=== PATIENT | male | born 1995 | race Caucasian/White ===

== ENCOUNTER 2023-08-03 11:19 | Observation (INO) ==
[2023-08-03 12:26] LABS: Hematocrit (blood only) 48.4 % (42.0-52.0); Hemoglobin 17.2 g/dl (14.0-18.0); Mean Corpuscular Hemoglobin 29.8 pg (25.0-34.0); Mean Corpuscular Hgb Conc 35.5 g/dL (32.0-36.0); Mean Corpuscular Volume 83.7 fL (80.0-100.0); Mean Platelet Volume 10.3 fL (9.4-12.4); Platelet Count 255 K/uL (130-400); RDW Coefficient of Variation 12.1 % (11.5-14.5); RDW Standard Deviation 36.8 fL (36.4-46.3); Red Blood Count 5.78 M/uL (4.70-6.10); White Blood Count 15.15 K/ul (4.8-10.8)
[2023-08-03 12:41] LABS: Alanine Aminotransferase 43 U/L (7-52); Albumin Globulin Ratio 1.5 (0.9-2); Alkaline Phosphatase 73 U/L (34-104); Anion Gap 7 (3-11); Aspartate Aminotransferase 24 U/L (13-39); Bilirubin,Total 0.4 mg/dl (0.2-1.0); Blood Urea Nitrogen 11 mg/dl (6-23); Calcium 10.1 mg/dl (8.6-10.3); Carbon Dioxide 28 mmol/L (21-32); Chloride 104 mmol/L (98-107); Creatinine Clr Calc Pharmacy 122.9 ml/min; Est GFR (African American) 118.2 ml/min; Globulin 3.4 gm/dl (2.5-4.0); Glucose 121 mg/dl (70-99(Fasting)); Lipase 11 U/L (11-82); Potassium 4.7 mmol/L (3.5-5.1); Sodium 139 mmol/L (136-145); Total Protein 8.4 gm/dl (6.0-8.3)
[2023-08-03 12:46] LABS: Troponin I High Sensitivity < 2.3 pg/ml (0-20)
--- NOTE | 2023-08-03 12:48 | Emergency Department Note ---
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 The pain is constant, but staying about the same intensity. Laying down flat makes the pain worse. He rates it as a stabbing pain rated as 9/10. Also having nausea and vomiting. Denies any fevers. He tried Tylenol and Zofran without improvement of the symptoms. Denies any urinary symptoms. Has been having normal BMs. Denies chest pain or SOB. The patient denies recent long car or plane rides or recent injury/trauma/surgery. Denies any personal history of blood clots or bleeding disorders. Denies any family history of blood clots or bleeding disorders. Denies any hormonal medication use. Denies any hemoptysis. Denies leg/calf pain or swelling. He has had an appendectomy, but no other abdominal surgeries. The patient drank about 1 bottles worth of water while in the waiting room. He ate spaghetti last night, but no other food today. Nothing else to drink today. REVIEW OF SYSTEMS: See HPI for pertinent positives and pertinent negatives. ALLERGIES: Meperidine, Morphine MEDICATIONS: Amitriptyline PAST MEDICAL HISTORY: Depression, Asthma, appendectomy PHYSICAL EXAM: VITALS: Vitals are noted on the nurse's note and reviewed by myself. GENERAL: Non toxic, no acute distress, non-diaphoretic. SKIN: Capillary refill <2 sec. EYES: PERRLA. EOMI. Conjunctivae without injection, sclerae without icterus. NOSE: Patent without discharge. MOUTH: Mucous membranes moist. Uvula midline. Airway patent. NECK: Supple without nuchal rigidity. HEART: Regular rate and rhythm without murmurs gallops or rubs. LUNGS: Clear to auscultation bilaterally without wheezes, rales or rhonchi. No retractions or accessory muscle use. ABDOMEN: Positive bowel sounds x 4. Normal tympanic percussion. Soft, tender to palpation in the right upper quadrant. Positive Varela sign, but no guarding or rigidity. No masses or organomegaly. No CVA tenderness. No focal RLQ or LLQ tenderness. MUSCULOSKELETAL: No gross musculoskeletal defects. NEURO: Patient was alert and oriented. No focal neurological deficits. DIFFERENTIAL DIAGNOSIS: Differential diagnosis includes hepatitis, pancreatitis, cholecystitis, cholelithiasis, appendicitis, kidney stone, pyelonephritis, UTI, gastritis, gastroenteritis, mesenteric adenitis, obstruction, constipation, hernia, abdominal abscess, perforation, diverticulitis, IBD, ischemic colitis, abdominal aortic aneurysm, testicular torsion, prostatitis, or others. ED COURSE AND MEDICAL DECISION MAKING: EKG: EKG was interpreted by myself as normal sinus rhythm at 71 bpm with no acute ST or T wave changes. MEDICATIONS GIVEN: 1 L normal saline solution bolus. Toradol 10 mg IV and Zofran 4 mg IV. Tylenol 1000 mg IV. Zosyn 4.5 g IV. INTERPRETATION OF LABS: I interpreted the labs with full lab results as below in the lab section of this note. White blood cell count elevated at 15.15. Hemoglobin normal at 17.2. Platelet count normal at 255. Glucose 121, but CMP otherwise without significant abnormalities. Lipase is normal. High- sensitivity troponin normal. Urinalysis with trace ketones, but otherwise normal. INTERPRETATION OF IMAGING: Imaging studies were interpreted by myself and read by radiology as per the imaging section of this note. Chest x-ray was negative for acute cardiopulmonary etiology. CT scan of the abdomen and pelvis with IV contrast showed acute cholecystitis. There is a gas containing gallstone in the cystic duct. CONSULTATIONS: Dr. Fritz of surgery MDM SUMMARY: The patient was seen during a time of extreme volume and extreme acuity. Nursing triage protocols were initiated with IV lock, labs, and/or imaging studies conducted by protocol in the triage area. The patient was initially evaluated in a triage room and then re-examined once they were taken back to an exam room. The patient had been given 1 L normal saline solution bolus as well as IV Toradol, IV Tylenol, and IV Zofran with mild improvement of his symptoms. The patient has allergies to morphine and meperidine and was concerned about a reaction to other stronger pain medications. The patient's white blood cell count is elevated and his CT scan is consistent with acute cholecystitis. Remainder of the workup without concerning abnormalities. The patient was given Zosyn 4.5 g IV. Unfortunately the patient did drink a bottle of water while in the waiting room, but nothing else to eat or drink today. Dr. Fritz of surgery was consulted and evaluated the patient. The patient will be admitted with plan for surgical intervention tomorrow. Please refer to Dr. Fritz's dictation for further details. The patient's care was transferred in stable condition. DIAGNOSIS: Acute cholecystitis Past Med/Surg History Medical History History of methamphetamine abuse Surgical History No pertinent past surgical history Family History Other No pertinent family history in first degree relatives Social History Smoking Status: Current every day smoker Tobacco Type: Cigarettes Second Hand Exposure: No; Do You Dip or Chew Tobacco: No; Tobacco Cessation Education Requested by Patient: No Hx Alcohol Use: No Hx Substance Use: No Preferred Language: Azeri Communication Ability: Effective [employer] Required: No Beliefs That Will Affect Care: None Current Living Situation: Family Other Information That Helps Us Care for You: No Feels Safe at Home: Yes Safety Concerns: Feels Safe At This Time Allergies Allergies Allergy/AdvReac Type Severity Reaction Status Date / Time meperidine Allergy Intermediate hives Verified 08/03/23 14:51 morphine Allergy Intermediate hives Verified 08/03/23 14:51 Home Meds Home Medications Medication Instructions Recorded Confirmed amitriptyline 25 mg tablet 25 mg PO HS 08/03/23 08/03/23 Results & Data (ED) Vital Signs Vital Signs - 24 hr 08/03/23 11:22 Temperature 36.6 C Temperature Source Temporal Artery Scan Pulse Rate 68 Respiratory Rate 18 Blood Pressure 143/96 H Blood Pressure Mean 111 Pulse Oximetry 96 Sepsis Recent Fever Within 48 Hours No Sepsis New/Unexplained Change in Mental Status N/A Sepsis Action Taken by Nursing No Action Required Laboratory Data 08/03/23 12:00 08/03/23 12:00 Lab Results 08/03/23 Range/Units 12:00 WBC 15.15 H (4.8-10.8) K/ul RBC 5.78 (4.70-6.10) M/uL Hgb 17.2 (14.0-18.0) g/dl Hct 48.4 (42.0-52.0) % MCV 83.7 (80.0-100.0) fL MCH 29.8 (25.0-34.0) pg MCHC 35.5 (32.0-36.0) g/dL RDW Std Deviation 36.8 (36.4-46.3) fL RDW Coeff of Emmy 12.1 (11.5-14.5) % Plt Count 255 (130-400) K/uL MPV 10.3 (9.4-12.4) fL Immature Gran % (Auto) 0.6 % Neut % (Auto) 90.1 % Lymph % (Auto) 5.5 % [place] % (Auto) 3.5 % Eos % (Auto) 0.1 % Baso % (Auto) 0.2 % Neut # (Auto) 13.65 H (1.40-6.50) K/uL Lymph # (Auto) 0.84 L (1.20-3.40) K/uL [place] # (Auto) 0.53 (0.11-0.59) K/uL Eos # (Auto) 0.01 (0.00-0.50) K/uL Baso # (Auto) 0.03 (0.00-0.20) K/uL Immature Gran # (Auto) 0.09 (0.01-0.20) K/uL Sodium 139 (136-145) mmol/L Potassium 4.7 (3.5-5.1) mmol/L Chloride 104 (98-107) mmol/L Carbon Dioxide 28 (21-32) mmol/L Anion Gap 7 (3-11) BUN 11 (6-23) mg/dl Creatinine 1.00 (0.6-1.4) mg/dl Est Cr Clr Drug Dosing 122.9 ml/min Est GFR ( Amer) 118.2 ml/min Est GFR (Non-Af Amer) 102.0 ml/min BUN/Creatinine Ratio 11.0 (10-20) Glucose 121 H (70-99(Fasting)) mg/dl Calcium 10.1 (8.6-10.3) mg/dl Total Bilirubin 0.4 (0.2-1.0) mg/dl AST 24 (13-39) U/L ALT 43 (7-52) U/L Alkaline Phosphatase 73 (34-104) U/L Troponin I High Sens < 2.3 (0-20) pg/ml Total Protein 8.4 H (6.0-8.3) gm/dl Albumin 5.0 (3.4-5.0) gm/dl Globulin 3.4 (2.5-4.0) gm/dl Albumin/Globulin Ratio 1.5 (0.9-2) Lipase 11 (11-82) U/L Administered Medications Amitriptyline HCl (Amitriptyline Hcl 25 Mg Tab) 25 mg PO HS [place] Stop: 09/02/23 20:59 Last Admin: 08/03/23 20:01 Dose: 25 mg Documented By: GI Hydromorphone HCl (Hydromorphone Inj 0.5 Mg/0.5 Ml Syr) 0.5 mg IV Q3H PRN PRN Reason: Moderate Pain (Scale 4, 5, 6) Stop: 08/17/23 16:13 Last Admin: 08/03/23 19:59 Dose: 0.5 mg Documented By: GI Acetaminophen (Ofirmev) 1,000 mg in 100 mls @ 400 mls/hr IV Q8H PRN PRN Reason: Mild Pain (Scale 1, 2, 3) Stop: 08/06/23 15:32 Last Infusion: 08/03/23 21:21 Dose: Infused Documented By: Admin: 08/03/23 20:57 Dose: 400 mls/hr Documented By: GI Ampicillin Sodium/Sulbactam Sodium 1,500 mg/ Sodium Chloride 100 mls @ 200 mls/hr IV Q6H [facility]; Protocol Stop: 08/13/23 15:59 Last Infusion: 08/03/23 21:38 Dose: Infused Documented By: Admin: 08/03/23 20:51 Dose: 200 mls/hr Documented By: Infusion: 08/03/23 18:14 Dose: Infused Documented By: Admin: 08/03/23 17:36 Dose: 200 mls/hr Documented By: BRITT Sodium Chloride (Nss) 1,000 mls @ 100 mls/hr IV .Q10H [place] Stop: 09/02/23 15:32 Last Admin: 08/03/23 15:39 Dose: 100 mls/hr Documented By: BRITT Nicotine (Nicotine 14 Mg/24 Hr Patch) 14 mg TD QAM [facility] Stop: 09/02/23 20:09 Last Admin: 08/03/23 20:50 Dose: 14 mg Documented By: GI Discontinued Medications Sodium Chloride (Nss) 1,000 mls @ 999 mls/hr IV .Q1H1M ONE Stop: 08/03/23 14:04 Last Infusion: 08/03/23 14:38 Dose: Infused Documented By: Admin: 08/03/23 13:30 Dose: 999 mls/hr Documented By: KAREN Acetaminophen (Ofirmev) 1,000 mg in 100 mls @ 400 mls/hr IV NOW STA Stop: 08/03/23 13:58 Last Infusion: 08/03/23 14:38 Dose: Infused Documented By: Admin: 08/03/23 13:51 Dose: 400 mls/hr Documented By: TERESA Piperacillin Sod/Tazobactam Sod (Zosyn) 4.5 gm in 100 mls @ 200 mls/hr IV NOW ONE Stop: 08/03/23 14:13 Last Infusion: 08/03/23 14:38 Dose: Infused Documented By: Admin: 08/03/23 13:51 Dose: 200 mls/hr Documented By: TERESA Ioversol (Optiray 320 500ml) 94 ml IV ONCE ONE Stop: 08/03/23 13:19 Last Admin: 08/03/23 13:18 Dose: 94 ml Documented By: RAUL Ketorolac Tromethamine (Ketorolac Tromethamine 15 Mg/Ml Vial) 10 mg IV NOW ONE Stop: 08/03/23 13:05 Last Admin: 08/03/23 13:30 Dose: 10 mg Documented By: KAREN Ondansetron HCl (Ondansetron Inj 2 Mg/Ml 2 Ml Vial) 4 mg IV NOW STA Stop: 08/03/23 13:05 Last Admin: 08/03/23 13:30 Dose: 4 mg Documented By: KAREN Imaging Data Radiologist's Impression: Abdomen/Pelvis CT 08/03/23 13:04 CT SCAN OF THE ABDOMEN AND PELVIS WITH IV CONTRAST CLINICAL HISTORY: Upper abdominal pain. Leukocytosis. COMPARISON STUDY: Abdominal CT dated 07/30/2022. TECHNIQUE: Following the IV administration of 94 cc of Optiray 320, CT scan of the abdomen and pelvis is performed from the lung bases to the proximal femora. Images are reviewed in the axial, sagittal, and coronal planes. IV contrast was administered without complication. A dose lowering technique was utilized adhering to the principles of ALARA. CT DOSE: 1103.42 mGy.cm FINDINGS: Lung bases: The heart is normal in size and without pericardial effusion. The lung bases are clear. There is a small hiatal hernia. Liver: The contrast-enhanced liver is normal in size, contour, and attenuation. There is no intrahepatic biliary ductal dilatation. The hepatic veins and portal veins are patent. Gallbladder: The gallbladder is distended and there is pericholecystic inflammation and fluid. Findings are consistent with acute cholecystitis. A gas containing gallstone is seen in the cystic duct on image #87. Spleen: Normal in size and attenuation. Pancreas: Unremarkable. Adrenal glands: Unremarkable. Kidneys: The contrast enhanced kidneys are normal in size and without hydronephrosis. The kidneys enhance symmetrically. A subcentimeter cortical hypodensity in the left kidney likely represents a cyst but is too small for definitive characterization. Abdominal vasculature: The abdominal aorta is normal in course and caliber. Bowel: There is mild to moderate colonic fecal retention. No bowel obstruction is seen. The appendix is not identified and reported surgically absent. Peritoneum: There is no intraperitoneal free air or abdominal ascites. There is a fat-containing umbilical hernia. Lymphadenopathy: None. Pelvic viscera: The bladder, prostate, and seminal vesicles are normal as imaged. Skeletal structures: No lytic or blastic lesions are seen. IMPRESSION: Acute cholecystitis. Surgical evaluation is advised. ACT 112: Negative or not required by law. Electronically signed by: Arnulfo Feng M.D. 08/03/2023 1:31 PM Chest X-Ray 08/03/23 13:08 SINGLE VIEW CHEST CLINICAL HISTORY: Upper abdominal pain FINDINGS: A PA chest radiograph is compared to study dated 01/25/2011. The cardiomediastinal silhouette is unremarkable. The lungs and pleural spaces are clear. No pneumothorax is seen. The bony thorax is grossly intact. IMPRESSION: No active disease in the chest. ACT 112: Negative or not required by law. Electronically signed by: Arnulfo Feng M.D. 08/03/2023 1:28 PM Discharge Plan Visit Data Chief Complaint: Abdominal Pain Stated Complaint: SEVERE ABD PAIN ED Provider: Jorge Padgett ED Midlevel Provider: Alesha Castaneda Discharge Problem: Acute cholecystitis Patient Disposition: Admitted As Inpatient Condition: Good Discharge Instructions Interventions: ED Discharge Assessment Last Done: 08/03/23 15:00
[2023-08-03 12:53] LABS: Basophils # (auto) 0.03 K/uL (0.00-0.20); Basophils % (auto) 0.2 %; Eosinophils # (auto) 0.01 K/uL (0.00-0.50); Eosinophils % (auto) 0.1 %; Immature Granulocytes # (auto) 0.09 K/uL (0.01-0.20); Immature Granulocytes % (auto) 0.6 %; Lymphocytes # (auto) 0.84 K/uL (1.20-3.40); Lymphocytes % (auto) 5.5 %; Monocytes # (auto) 0.53 K/uL (0.11-0.59); Monocytes % (auto) 3.5 %; Neutrophils # (auto) 13.65 K/uL (1.40-6.50); Neutrophils % (auto) 90.1 %
[2023-08-03] MEDS: OPTIRAY 320 500ml IV ONE (13:18)
--- NOTE | 2023-08-03 13:29 | XRay Report ---
SINGLE VIEW CHEST CLINICAL HISTORY: Upper abdominal pain FINDINGS: A PA chest radiograph is compared to study dated 01/25/2011. The cardiomediastinal silhouett e is unremarkable. The lungs and pleural spaces are clear. No pneumothorax is seen. The bony thorax i s grossly intact. IMPRESSION: No active disease in the chest. ACT 112: Negative or not required by law. Electronically signed by: Arnulfo Feng M.D. 08/03/2023 1:28 PM
[2023-08-03] MEDS: KETOROLAC TROMETHAMINE 15 MG/ML VIAL IV ONE (13:30)
[2023-08-03] MEDS: SODIUM CHLORIDE 0.9% 1,000 ML IV ONE (13:30)
[2023-08-03] MEDS: ONDANSETRON INJ 2 MG/ML 2 ML VIAL IV STA (13:30)
--- NOTE | 2023-08-03 13:32 | CT Scan Report ---
CT SCAN OF THE ABDOMEN AND PELVIS WITH IV CONTRAST CLINICAL HISTORY: Upper abdominal pain. Leukocytosis. COMPARISON STUDY: Abdominal CT dated 07/30/2022. TECHNIQUE: Following the IV administration of 94 cc of Optiray 320, CT scan of the abdomen and pelvi s is performed from the lung bases to the proximal femora. Images are reviewed in the axial, sagittal , and coronal planes. IV contrast was administered without complication. A dose lowering technique wa s utilized adhering to the principles of ALARA. CT DOSE: 1103.42 mGy.cm FINDINGS: Lung bases: The heart is normal in size and without pericardial effusion. The lung bases are clear. T here is a small hiatal hernia. Liver: The contrast-enhanced liver is normal in size, contour, and attenuation. There is no intrahepa tic biliary ductal dilatation. The hepatic veins and portal veins are patent. Gallbladder: The gallbladder is distended and there is pericholecystic inflammation and fluid. Findin gs are consistent with acute cholecystitis. A gas containing gallstone is seen in the cystic duct on image #87. Spleen: Normal in size and attenuation. Pancreas: Unremarkable. Adrenal glands: Unremarkable. Kidneys: The contrast enhanced kidneys are normal in size and without hydronephrosis. The kidneys enh ance symmetrically. A subcentimeter cortical hypodensity in the left kidney likely represents a cyst but is too small for definitive characterization. Abdominal vasculature: The abdominal aorta is normal in course and caliber. Bowel: There is mild to moderate colonic fecal retention. No bowel obstruction is seen. The appendix is not identified and reported surgically absent. Peritoneum: There is no intraperitoneal free air or abdominal ascites. There is a fat-containing umbi lical hernia. Lymphadenopathy: None. Pelvic viscera: The bladder, prostate, and seminal vesicles are normal as imaged. Skeletal structures: No lytic or blastic lesions are seen. IMPRESSION: Acute cholecystitis. Surgical evaluation is advised. ACT 112: Negative or not required by law. Electronically signed by: Arnulfo Feng M.D. 08/03/2023 1:31 PM
[2023-08-03] MEDS: PIPERACILLIN/TAZOBACTAM 4.5 GM/100 ML BAG IV ONE (13:51)
[2023-08-03] MEDS: ACETAMINOPHEN 1,000 MG/100 ML VIAL IV STA (13:51)
--- NOTE | 2023-08-03 14:24 | History & Physical Report ---
Date of Service August 03, 2023 Assessment & Plan (1) Acute cholecystitis: Plan: His CT images and results were personally viewed and interpreted by myself He has an inflamed GB and leukocytosis consistent with acute cholecystitis Will admit the patient to the surgical service Keep NPO, Start IV ABX Pain control Repeat labs in AM Will plan on laparoscopic cholecystectomy, possible open, possible IOC tomorrow History of Present Illness Chief Complaint: Acute Cholecystitis Primary Care Provider: NO PCP This is a 28 yo male who presented to the ER today after having sharp, non- radiating epigastric and RUQ abdominal pain since 2AM this morning. He denies any worsening or relieving factors. He has had nausea, but no emesis. Denies any fevers or chills. He denies any jaundice, acholic stools, tea-colored urine. He feels slightly better now since admission. His previous abdominal surgery is an open appendectomy. Allergies Allergy/AdvReac Type Severity Reaction Status Date / Time meperidine Allergy Intermediate hives Verified 08/24/18 23:46 morphine Allergy Intermediate hives Verified 08/24/18 23:46 Home Medications Medication Instructions Recorded Confirmed Type sulfamethoxazole 800 1 tab PO BID #20 tabs 03/23/22 Rx mg-trimethoprim 160 mg tablet (Bactrim DS) dicyclomine 20 mg tablet 20 mg PO TID #20 tabs 07/30/22 Rx ondansetron 4 mg disintegrating 4 mg PO Q6H PRN nausea and 07/30/22 Rx tablet vomiting #14 tabs Past Med/Surg History Medical History History of methamphetamine abuse Surgical History No pertinent past surgical history Family History Other No pertinent family history in first degree relatives Social History Smoking Status: Current every day smoker Tobacco Type: Cigarettes Preferred Language: Upper Sorbian Feels Safe at Home: Yes Review of Systems Constitutional: no fever and no chills Eyes: no blind spots and no worsening vision Ear, Nose, Mouth, Throat: no ear pain and no dysphagia Respiratory: no cough and no dyspnea Cardiovascular: no chest pain and no dyspnea on exertion Gastrointestinal: + abdominal pain and + nausea; no vomiti ng, no constipation and no diarrhea/loose stools Genitourinary: + dysuria; no decreased urination Musculoskeletal: no back pain and no neck pain Integumentary: no rash, no skin ulcer and no erythema Neurologic: no gait abnormality, no paresthesia and no headache(s) Psychiatric: + depression and + substance abuse; no b ehavioral changes Hematologic / Lymphatic: no easy bleeding and no easy bruising Physical Exam Constitutional: WD/WN, vitals as above Eyes: PERRL, conjunctivae normal, anicteric sclerae ENMT: external ear and nose normal, oropharynx normal Neck: trachea midline, no thyromegaly Respiratory: normal respiratory effort, lungs clear to auscultation Cardiovascular: RRR, no murmur, no edema Gastrointestinal (Abdomen): Inspection/Auscultation: abdomen normal to inspection; abdomen not distended Percussion/Palpation: + abdomen tender (RUQ) and abdomen soft; no guarding, abdomen not rigid and no hernia Positive Varela's Musculoskeletal: no cyanosis or clubbing, extremities motor strength 5/5 Skin: no rashes, warm and dry Neurologic: PERRL, EOMI, accommodation nl, no face palsy, no dysarthria Psychiatric: A+Ox3, euthymic affect Results & Data Results & Data Vital Signs (Past 12 Hours) Vital Signs Temp Pulse Resp BP Pulse Ox 08/03/23 11:22 36.6 C 68 18 143/96 H 96 PG Care Time/CCT Total # of Minutes Spent Total Time Spent with Patient: Total time spent is greater than 50% in coordination of care (as documented) at patient's floor/unit and/or counseling patient: Coding Level of Care Code 36740 INT INP/OBS CARE 3/75MIN Diagnoses Acute cholecystitis K81.0
[2023-08-03 15:04] LABS: Appearance Urine Clear (Clear); Bilirubin Urine Negative (Negative); Blood Urine Negative (Negative); Color Urine Yellow; Glucose Urine UA Negative (Negative); Ketones Urine Trace (Negative); Leukocyte Esterase Urine Negative (Negative); Nitrite Urine Negative (Negative); Protein Urine Negative (Negative); Specific Gravity Urine 1.027 (1.000-1.030); Urobilinogen Urine Negative (Negative); pH Urine 6.5 (4.5-7.5)
--- NOTE | 2023-08-03 15:08 | Electrocardiogram Report ---
Test Reason : Blood Pressure : / mmHG Vent. Rate : 071 BPM Atrial Rate : 071 BPM P-R Int : 160 ms QRS Dur : 086 ms QT Int : 388 ms P-R-T Axes : 048 006 043 degrees QTc Int : 421 ms Sinus rhythm Normal ECG When compared with ECG of 30-JUL-2022 04:16, No significant change Confirmed by Myron Echevarria ([id number]) on 08/03/2023 3:08:02 PM Referred By: Kevin Fritz Confirmed By:Myron Echevarria
[2023-08-03] MEDS ORDERED: MoRPHine SULFATE 4 MG/ML 1 ML CARP\\VIAL IV PRN (15:33)
[2023-08-03] MEDS ORDERED: MoRPHine SULFATE 2 MG/ML CARP IV PRN (15:33)
[2023-08-03] MEDS ORDERED: ONDANSETRON INJ 2 MG/ML 2 ML VIAL IV PRN (15:33)
[2023-08-03] MEDS: SODIUM CHLORIDE 0.9% 1,000 ML IV SCH (15:39)
[2023-08-03] MEDS: AMPICILLIN SOD/SULBACTAM SOD 1,500 MG in SODIUM CHLOR 0.9% MINI-B 100 ML IV SCH (17:36)
[2023-08-03] MEDS: HYDROmorphone INJ 0.5 MG/0.5 ML SYR IV PRN (19:59)
[2023-08-03] MEDS: AMITRIPTYLINE HCL 25 MG TAB PO SCH (20:01)
[2023-08-03] MEDS: NICOTINE 14 MG/24 HR PATCH TD SCH (20:50)
[2023-08-03] MEDS: ACETAMINOPHEN 1,000 MG/100 ML VIAL IV PRN (20:57)
[2023-08-04 07:16] LABS: Basophils # (auto) 0.04 K/uL (0.00-0.20); Basophils % (auto) 0.3 %; Eosinophils # (auto) 0.11 K/uL (0.00-0.50); Eosinophils % (auto) 0.7 %; Hematocrit (blood only) 42.9 % (42.0-52.0); Hemoglobin 14.6 g/dl (14.0-18.0); Immature Granulocytes # (auto) 0.07 K/uL (0.01-0.20); Immature Granulocytes % (auto) 0.5 %; Lymphocytes # (auto) 1.65 K/uL (1.20-3.40); Lymphocytes % (auto) 10.9 %; Mean Corpuscular Hemoglobin 28.9 pg (25.0-34.0); Mean Platelet Volume 10.2 fL (9.4-12.4); Monocytes # (auto) 1.33 K/uL (0.11-0.59); Monocytes % (auto) 8.8 %; Neutrophils # (auto) 11.91 K/uL (1.40-6.50); Neutrophils % (auto) 78.8 %; Platelet Count 200 K/uL (130-400); RDW Coefficient of Variation 12.3 % (11.5-14.5); RDW Standard Deviation 37.7 fL (36.4-46.3); Red Blood Count 5.05 M/uL (4.70-6.10); White Blood Count 15.11 K/ul (4.8-10.8)
[2023-08-04 08:00] LABS: Albumin Globulin Ratio 1.4 (0.9-2); Albumin Level 3.8 gm/dl (3.4-5.0); BUN Creatinine Ratio 6.3 (10-20); Bilirubin,Total 0.6 mg/dl (0.2-1.0); Calcium 8.9 mg/dl (8.6-10.3); Creatinine Clr Calc Pharmacy 110.7 ml/min; Est GFR (African American) 104.2 ml/min; Est GFR (Non-African American) 89.9 ml/min; Globulin 2.7 gm/dl (2.5-4.0); Total Protein 6.5 gm/dl (6.0-8.3)
[2023-08-04] MEDS: HYDROmorphone INJ 1 MG/ML SYRINGE IV PRN (10:20)
--- NOTE | 2023-08-04 11:34 | Anesthesiology Consultation ---
Date of Service August 04, 2023 History Surgery Operation Date: 08/04/23 08:20 Proposed Procedures p Laparoscopic Cholecystectomy, Possible Open, Possible Cholangiogram - Kevin Fritz, Height/Weight Height: 5 ft 10 in Weight: 88 kg Allergies Allergy/AdvReac Type Severity Reaction Status Date / Time meperidine Allergy Intermediate hives Verified 08/03/23 14:51 morphine Allergy Intermediate hives Verified 08/03/23 14:51 Medications Home Medications Medication Instructions Recorded Confirmed Last Taken amitriptyline 25 mg tablet 25 mg PO HS 08/03/23 08/03/23 08/02/23 Active Medications Generic Name Dose Route Start Last Admin Trade Name Freq PRN Reason Stop Dose Admin Amitriptyline HCl 25 mg 08/03/23 21:00 08/03/23 20:01 Amitriptyline Hcl 25 Mg Tab PO 09/02/23 20:59 25 mg HS [place] Administration Hydromorphone HCl 0.5 mg 08/03/23 16:14 08/03/23 19:59 Hydromorphone Inj 0.5 Mg/0.5 Ml Syr IV 08/17/23 16:13 0.5 mg Q3H PRN Administration Moderate Pain (Scale 4, 5, 6) Hydromorphone HCl 1 mg 08/03/23 16:14 08/04/23 10:20 Hydromorphone Inj 1 Mg/Ml Syringe IV 08/17/23 16:13 1 mg Q3H PRN Administration Severe Pain (Scale 7, 8, 9,10) Acetaminophen 1,000 mg in 100 mls @ 400 mls/hr 08/03/23 15:33 08/04/23 11:27 Ofirmev IV 08/06/23 15:32 Infused Q8H PRN Infusion Mild Pain (Scale 1, 2, 3) Ampicillin Sodium/Sulbactam 100 mls @ 200 mls/hr 08/03/23 16:00 08/04/23 11:00 Sodium 1,500 mg/ Sodium IV 08/13/23 15:59 Infused Chloride Q6H [place] Infusion Protocol Sodium Chloride 1,000 mls @ 100 mls/hr 08/03/23 15:33 08/04/23 10:40 Nss IV 09/02/23 15:32 100 mls/hr .Q10H [place] Administration Miscellaneous 1 each 08/04/23 08:59 08/04/23 08:40 Remove Nicoderm Patch N/A 09/03/23 08:58 1 each [id number] [place] Administration Nicotine 14 mg 08/03/23 20:10 08/04/23 08:40 Nicotine 14 Mg/24 Hr Patch TD 09/02/23 20:09 14 mg QAM [place] Administration Past Medical History Medical History History of methamphetamine abuse Past Family History Family History Other No pertinent family history in first degree relatives Past Surgical History Surgical History No pertinent past surgical history Social History Smoking Status: Current every day smoker Do You Dip or Chew Tobacco: No Hx Alcohol Use: No Hx Substance Use: No Physical Exam Vital Signs Last Vital Signs Temp 36.9 C 08/04/23 07:11 Pulse 88 08/04/23 07:11 Resp 16 08/04/23 07:11 BP 117/76 08/04/23 07:11 Pulse Ox 97 08/04/23 07:11 O2 Del Method Room Air 08/04/23 07:11 Testing Laboratory Results 08/04/23 06:46 08/04/23 06:46 Urine Color Yellow 08/03/23 14:51 Urine Appearance Clear (Clear) 08/03/23 14:51 Urine pH 6.5 (4.5-7.5) 08/03/23 14:51 Ur Specific [place] 1.027 (1.000-1.030) 08/03/23 14:51 Urine Protein Negative (Negative) 08/03/23 14:51 Urine Glucose (UA) Negative (Negative) 08/03/23 14:51 Urine Ketones Trace (Negative) H 08/03/23 14:51 Urine Nitrite Negative (Negative) 08/03/23 14:51 Ur Leukocyte Esterase Negative (Negative) 08/03/23 14:51
[2023-08-04] MEDS: LACTATED RINGER'S 1,000 ML IV SCH ×3 (12:48→19:22)
[2023-08-04] MEDS ORDERED: ATROPINE SULFATE 0.1 MG/ML 10ML SYR IV PRN (13:14)
[2023-08-04] MEDS ORDERED: PROMETHAZINE HCL 6.25 MG in SODIUM CHLORIDE 0.9% 50 ML IV PRN (13:14)
[2023-08-04] MEDS ORDERED: HYDROmorphone INJ 2 MG/ML SYR/VIAL IV PRN (13:14)
[2023-08-04] MEDS ORDERED: ePHEDrine sulfate 50 MG/ML AMP IV PRN (13:14)
[2023-08-04] MEDS ORDERED: MIDAZOLAM HCL 1 MG/ML 2ML VIAL ONE (13:16)
[2023-08-04] MEDS ORDERED: fentaNYL citrate PF 100 MCG/2 ML VIAL ONE ×2 (13:16→14:16)
[2023-08-04] MEDS ORDERED: KETAMINE HCL 10MG/ML SYR ONE (13:17)
[2023-08-04] MEDS ORDERED: PROPOFOL IV EMULSION 10 MG/ML 20 ML VIAL IV ONE (13:19)
[2023-08-04] MEDS ORDERED: ROCURONIUM BROMIDE 10 MG/ML 5 ML VIAL IV ONE (13:19)
[2023-08-04] MEDS ORDERED: DEXAMETHASONE SOD INJ 4 MG/ML VIAL ONE ×2 (13:19→14:07)
[2023-08-04] MEDS ORDERED: SUGAMMADEX SODIUM 200 MG/2 ML VIAL IV ONE (13:19)
[2023-08-04] MEDS ORDERED: ONDANSETRON INJ 2 MG/ML 2 ML VIAL ONE ×2 (13:19→14:58)
--- NOTE | 2023-08-04 13:46 | Surgery Progress Note ---
Date of Service August 04, 2023 Assessment & Plan (1) Acute cholecystitis: Plan: Proceed with laparoscopic cholecystectomy, possible open, possible IOC Consent was obtained, risks discussed including bleeding, infection, bile leak, ductal injury Admission and Anticipated Discharge Date Admission Date: August 03, 2023 Subjective Pt seen and examined. Pain is still present. Afebrile. Review of Systems Constitutional: no fever and no chills Physical Exam Constitutional: WD/WN, vitals as above Gastrointestinal (Abdomen): Inspection/Auscultation: abdomen normal to inspection; abdomen not distended Percussion/Palpation: + abdomen tender (RUQ) and abdomen soft; no guarding and no hernia Results & Data Vital Signs (Past 12 Hours) Vital Signs Temp Pulse Pulse Resp BP Pulse Ox O2 Del Method 08/04/23 12:44 37 C 92 H 20 119/71 93 Room Air 08/04/23 07:11 36.9 C 88 16 117/76 97 Room Air PG Care Time/CCT Total # of Minutes Spent Total Time Spent with Patient: Total time spent is greater than 50% in coordination of care (as documented) at patient's floor/unit and/or counseling patient: Coding Level of Care Code 76830 SUB INP/OBS CARE 25MIN Diagnoses Acute cholecystitis K81.0
[2023-08-04] MEDS: FLOSEAL HEMOSTATIC MATRIX 10ML TOP ONE (15:15)
[2023-08-04] MEDS: BUPIVACAINE/EPINEPHRINE 0.5% MPF 1:200,000 30 ML VIAL ONE (15:21)
--- NOTE | 2023-08-04 15:35 | Post Operative Brief Note ---
PG Immediate Post Op with CF Date of Surgery August 04, 2023 Pre & Post Diagnosis Operation Date: 08/04/23 07:00 Pre-Op Diagnosis: Acute Cholecystitis Post-Op Diagnosis: Acute Cholecystitis I identified the patient and participated in the time-out.: Yes Procedure Operation Date: 08/04/23 07:00 Actual Procedures p Laparoscopic Cholecystectomy(Not Applicable) - Kevin Fritz DO Surgeon Kevin Fritz DO Entrepreneur Naty ALBERTS Estimated Blood Loss 25 Findings See Below Acutely inflamed, thick walled, distended gallbladder Specimens Specimen Description: A) Gallbladder and Contents Anesthesia Type General Complications none Disposition Disposition: Recovery Room
--- NOTE | 2023-08-04 15:38 | Operative Report ---
PG Post Operative Report Pre & Post Diagnosis Operation Date: 08/04/23 07:00 Pre-Op Diagnosis: Acute Cholecystitis Post-Op Diagnosis: Acute Cholecystitis I identified the patient and participated in the time-out.: Yes Procedure Operation Date: 08/04/23 07:00 Actual Procedures p Laparoscopic Cholecystectomy(Not Applicable) - Kevin Fritz DO Surgeon Kevin Fritz DO Director Customer Naty ALBERTS Estimated Blood Loss 25 Findings See Below Acutely inflamed, thick walled, distended gallbladder Fluids see anesthesia record Specimens Gallbladder to pathology Drains None Anesthesia Type General Complications none Disposition Disposition: Recovery Room Indications 28 yo male with acute cholecystitis Description of Procedure The patient was brought to the operating room and placed in the supine position with both arms extended. At this time he underwent general endotracheal anesthesia without any problems. He was given appropriate pre-operative antibiotics. His abdomen prepped and draped in the usual sterile fashion. A timeout was called, the procedure was verified as Laparoscopic cholecystectomy, possible open, possible intra-operative cholangiogram. Surgical, nursing and anesthesia teams agreed and the procedure was begun. After injection of 0.25% Marcaine with epinephrine, a supraumbilical vertical incision was made and carried down to the fascia using S-retractors. The abdominal wall was then elevated with towel clamps and abdomen entered using the Veress needle confirming position using the saline drop test. Pneumoperitoneum was established. 5mm trocar was placed. Laparoscope was introduced. No injury from entry into the abdomen was visualized after inspection of the abdomen. Three further ports were placed under direct visualization. One 11mm in the subxiphoid region and two 5mm in the RUQ. At this time the abdomen was inspected and the gallbladder identified. The gallbladder fundus was grasped and retracted cephalad. The gallbladder was needle decompressed in order to better retract it. It was acutely inflamed, dilated and thick walled consistent with acute cholecystitis. The gallbladder infundibulum was then grasped and retracted laterally. The cystic duct and cystic artery were then identified and skeletonized. The critical view of safety was obtained. They were both then clipped twice proximally and once distally and then divided using scissors. The gallbladder was then taken off of the liver bed using electrocautery and placed in an endocatch bag and removed from the subxiphoid port. The liver bed was then inspected and no bile leak or bleeding was evident. The subxiphoid port w as then closed using 0-Vicryl using the suture passer. The trocars were then removed under direct visualization and no bleeding was present. Abdomen was desufflated. The skin was then closed using 4-0 Monocryl in a subcuticular fashion. Surgical glue was applied. Needle and sponge counts were correct x 2. At this time the patient was awoken from anesthesia and extubated having remained stable throughout the entire case. The patient was then transported to PACU in stable condition. The nurse practitioner was present and scrubbed for the entire procedure. She was essential in positioning, prepping and draping the patient, retraction and exposure, driving the laparoscope, closure of the incisions and placement of the dressings. I attest to the content of the Intraoperative Record and any orders documented therein. Any exceptions are noted below.
--- NOTE | 2023-08-04 16:13 | Anesthesiology Progress Note ---
Date of Service August 04, 2023 Anesthesia Post Procedure Vital Signs Vital Signs: Temp Pulse Pulse Resp BP Pulse Ox O2 Del Method 08/04/23 16:05 36.6 C 85 15 135/80 95 Room Air 08/04/23 15:55 88 15 150/87 H 98 Room Air 08/04/23 15:45 87 13 155/95 H 100 Oxymask 08/04/23 15:38 36.4 C L 85 14 131/84 100 Oxymask 08/04/23 12:44 37 C 92 H 20 119/71 93 Room Air 08/04/23 07:11 36.9 C 88 16 117/76 97 Room Air 08/03/23 19:24 36.8 C 79 18 138/89 99 Room Air O2 Flow Rate 08/04/23 16:05 08/04/23 15:55 08/04/23 15:45 5 08/04/23 15:38 5 08/04/23 12:44 08/04/23 07:11 08/03/23 19:24 Pain Intensity Abdomen: Pain Intensity: 5 Transfer of Care Handoff Completed per policy Notes Mental Status: alert / awake / arousable Patient Amnestic to Procedure: Yes Nausea / Vomiting: adequately controlled Pain: adequately controlled Airway Patency, RR, SpO2: stable & adequate BP & HR: stable & adequate Hydration State: stable & adequate Anesthetic Complications: no major complications apparent and Pt Satisfied with anesthetic care
[2023-08-04] MEDS ORDERED: oxyCODONE HCL IR 5 MG TAB (IMMEDIATE RELEASE) PO PRN ×2 (16:31)
[2023-08-04] MEDS: SODIUM CHLORIDE 0.9% 1,000 ML IV SCH (17:54)
[2023-08-04] MEDS: NICOTINE 21 MG/24 HR TDSY TD SCH (20:19)
[2023-08-05 06:31] LABS: Basophils # (auto) 0.01 K/uL (0.00-0.20); Basophils % (auto) 0.1 %; Eosinophils # (auto) 0.02 K/uL (0.00-0.50); Eosinophils % (auto) 0.1 %; Hematocrit (blood only) 36.5 % (42.0-52.0); Hemoglobin 12.6 g/dl (14.0-18.0); Immature Granulocytes # (auto) 0.08 K/uL (0.01-0.20); Immature Granulocytes % (auto) 0.5 %; Lymphocytes # (auto) 1.55 K/uL (1.20-3.40); Lymphocytes % (auto) 10.6 %; Mean Corpuscular Hemoglobin 29.1 pg (25.0-34.0); Mean Corpuscular Hgb Conc 34.5 g/dL (32.0-36.0); Mean Corpuscular Volume 84.3 fL (80.0-100.0); Mean Platelet Volume 10.3 fL (9.4-12.4); Monocytes # (auto) 1.26 K/uL (0.11-0.59); Monocytes % (auto) 8.6 %; Neutrophils # (auto) 11.71 K/uL (1.40-6.50); Neutrophils % (auto) 80.1 %; Platelet Count 210 K/uL (130-400); RDW Coefficient of Variation 12.3 % (11.5-14.5); RDW Standard Deviation 37.5 fL (36.4-46.3); Red Blood Count 4.33 M/uL (4.70-6.10); White Blood Count 14.63 K/ul (4.8-10.8)
[2023-08-05 07:29] LABS: Albumin Globulin Ratio 1.3 (0.9-2); Albumin Level 3.4 gm/dl (3.4-5.0); BUN Creatinine Ratio 6.8 (10-20); Bilirubin,Total 0.5 mg/dl (0.2-1.0); Calcium 8.9 mg/dl (8.6-10.3); Creatinine Clr Calc Pharmacy 139.6 ml/min; Est GFR (African American) 135.5 ml/min; Est GFR (Non-African American) 116.9 ml/min; Globulin 2.6 gm/dl (2.5-4.0)
--- NOTE | 2023-08-05 10:50 | Surgery Progress Note ---
Date of Service August 05, 2023 Assessment & Plan (1) Acute cholecystitis: Plan: Advance diet Encourage ambulation If tolerates diet he can be discharged later this afternoon Give 10 days ABX PO upon discharge Admission and Anticipated Discharge Date Admission Date: August 03, 2023 Subjective Pt seen and examined. Pain controlled. Afebrile. Tolerating clears. Physical Exam Constitutional: WD/WN, vitals as above Gastrointestinal (Abdomen): Incisions without erythema or drainage Results & Data Vital Signs (Past 12 Hours) Vital Signs Temp Pulse Resp BP Pulse Ox O2 Del Method 08/05/23 08:15 Room Air 08/05/23 07:53 36.5 C 72 16 110/69 97 Room Air 08/05/23 03:04 36.6 C 83 16 105/63 95 Room Air 08/05/23 00:00 36.7 C 85 16 115/70 95 Room Air PG Care Time/CCT Total # of Minutes Spent Total Time Spent with Patient: Total time spent is greater than 50% in coordination of care (as documented) at patient's floor/unit and/or counseling patient: Coding Level of Care Code 22252 Post Operative Follow-Up Diagnoses Acute cholecystitis K81.0
== END 2023-08-05 15:17 | disposition home or self-care (01) ==
LOC: ED 11:19 → 3W 14:18 → INTOOBSV 14:18 → 3W 15:00